=== PATIENT | female | born 1970 | race American Indian/Alaskan Native ===

== ENCOUNTER 2020-05-06 14:51 | Emergency (ER) | payer MEDICARE ==
--- NOTE | 2020-05-06 15:31 | Event Note ---
ED Screening Note Date of service: 05/06/20 Time: 15:25 ED Screening Note: 49 y/o female comes in for abd pain, N/V/D. History SCD, Cancer and IBS. History of cholecystectomy This initial assessment/diagnostic orders/clinical plan/treatment(s) is/are subject to change based on patients health status, clinical progression and re- assessment by fellow clinical providers in the ED. Further treatment and workup at subsequent clinical providers discretion. Patient/guardian urged not to elope from the ED as their condition may be serious if not clinically assessed and managed. Initial orders include:
[2020-05-06 15:49] LABS: Basophils # (Auto) 0.1 K/mm3 (0.0-0.1); Basophils % (Auto) 1.6 % (0.0-1.8); Eosinophils % (Auto) 0.1 % (0.0-4.3); Hematocrit 35.7 % (30.3-42.9); Hemoglobin 12.3 gm/dl (10.1-14.3); Lymphocytes # (Auto) 1.3 K/mm3 (1.2-5.4); Lymphocytes % (Auto) 27.6 % (13.4-35.0); Mean Corpuscular HGB Conc 34 % (30-34); Mean Corpuscular Volume 99 fl (79-97); Monocytes # (Auto) 0.3 K/mm3 (0.0-0.8); Monocytes % (Auto) 6.6 % (0.0-7.3); Platelet Count 375 K/mm3 (140-440); Red Blood Count 3.61 M/mm3 (3.65-5.03); Red Cell Distribution Width 13.3 % (13.2-15.2)
[2020-05-06 16:03] LABS: Alanine Aminotransferase 9 units/L (7-56); Albumin 4.5 g/dL (3.9-5); BUN/Creatinine Ratio 24; Blood Urea Nitrogen 17 mg/dL (7-17); Calcium 9.7 mg/dL (8.4-10.2); Hemolysis Index 11
--- NOTE | 2020-05-06 16:18 | Emergency Department Report ---
ED Abdominal Pain HPI - General Chief Complaint: Nausea/Vomiting/Diarrhea Stated Complaint: STOMACH PAIN, DIRRHEA Time Seen by Provider: 05/06/20 16:05 Source: patient Mode of arrival: Ambulatory Limitations: No Limitations - History of Present Illness Initial Comments: 49-year-old Pakistani female with past medical history of leukemia, hypertension with emerge department complaining of a 1 day history of diffuse abdominal pain which radiates to the lower abdomen associated with with diarrhea. She became concerned when she had an episode of vomiting today reports no hematemesis no hematochezia no no hematuria reports no chest pain or palpitations no fevers chills or sweats. MD Complaint: abdominal pain Quality: aching, dull Consistency: constant Improves With: nothing Worsens With: nothing Associated Symptoms: nausea, vomiting, diarrhea. denies: constipation, dysuria, hematemesis - Related Data Home Medications Medication Instructions Recorded Confirmed Last Taken lisinopriL [Zestril TAB] 11/25/13 11/25/13 Unknown Previous Rx's Medication Instructions Recorded Last Taken Type HYDROcodone/APAP 5-325 [[place] 1 each PO Q6HR PRN #12 tablet 11/25/13 Unknown Rx 5/325 mg] Penicillin Vk [Veetids TAB] 500 mg PO QID #40 tablet 11/25/13 Unknown Rx Ondansetron [Zofran Odt] 4 mg PO Q6H #20 tab.rapdis 02/28/15 Unknown Rx Ciprofloxacin HCl [Ciprofloxacin 500 mg PO Q12HR #20 tab 05/06/20 Unknown Rx TAB] Hyoscyamine Subl [Levsin Sl] 0.125 mg SL Q4HR PRN #16 tablet 05/06/20 Unknown Rx Ondansetron [Zofran ODT TAB] 8 mg PO Q12HR #14 tab.rapdis 05/06/20 Unknown Rx metroNIDAZOLE [Flagyl] 500 mg PO Q12HR #20 tab 05/06/20 Unknown Rx Allergies Allergy/AdvReac Type Severity Reaction Status Date / Time ibuprofen [From Motrin] Allergy Vomiting Verified 11/25/13 18:41 tramadol HCl [From Ultram] Allergy Vomiting Verified 11/25/13 18:41 ED Review of Systems ROS: Stated complaint: STOMACH PAIN, DIRRHEA Other details as noted in HPI Comment: All other systems reviewed and negative ED Past Medical Hx - Past Medical History Previous Medical History?: Yes Hx Hypertension: Yes Additional medical history: bowel obstruction - Surgical History Past Surgical History?: Yes Additional Surgical History: hysterectomy - Social History Smoking Status: Unknown if ever smoked Substance Use Type: None - Medications Home Medications: Home Medications Medication Instructions Recorded Confirmed Last Taken Type HYDROcodone/APAP 5-325 [[place] 1 each PO Q6HR PRN #12 tablet 11/25/13 Unknown Rx 5/325 mg] Penicillin Vk [Veetids TAB] 500 mg PO QID #40 tablet 11/25/13 Unknown Rx lisinopriL [Zestril TAB] 11/25/13 11/25/13 Unknown History Ondansetron [Zofran Odt] 4 mg PO Q6H #20 tab.rapdis 02/28/15 Unknown Rx Ciprofloxacin HCl [Ciprofloxacin 500 mg PO Q12HR #20 tab 05/06/20 Unknown Rx TAB] Hyoscyamine Subl [Levsin Sl] 0.125 mg SL Q4HR PRN #16 tablet 05/06/20 Unknown Rx Ondansetron [Zofran ODT TAB] 8 mg PO Q12HR #14 tab.rapdis 05/06/20 Unknown Rx metroNIDAZOLE [Flagyl] 500 mg PO Q12HR #20 tab 05/06/20 Unknown Rx ED Physical Exam - General Limitations: No Limitations General appearance: alert, in no apparent distress - Head Head exam: Present: atraumatic, normocephalic - Eye Eye exam: Present: normal appearance, PERRL, EOMI Pupils: Present: normal accommodation - ENT ENT exam: Present: mucous membranes moist - Neck Neck exam: Present: normal inspection - Respiratory Respiratory exam: Present: normal lung sounds bilaterally. Absent: respiratory distress - Cardiovascular Cardiovascular Exam: Present: regular rate, normal rhythm. Absent: systolic murmur, diastolic murmur, rubs, gallop - GI/Abdominal GI/Abdominal exam: Present: soft, tenderness, normal bowel sounds, other (No Ro vsing, no Dent Justice, no Justice sign, no Weinstein's, no tenderness at McBurney's). Absent: guarding, rebound, hyperactive bowel sounds, hypoactive bowel sounds, organomegaly - Extremities Exam Extremities exam: Present: normal inspection - Back Exam Back exam: Present: normal inspection - Neurological Exam Neurological exam: Present: alert, oriented X3, CN II-XII intact, normal gait - Psychiatric Psychiatric exam: Present: normal affect, normal mood - Skin Skin exam: Present: warm, dry, intact, normal color. Absent: rash ED Course Vital Signs 05/06/20 15:13 Temperature 99 F Pulse Rate 71 Respiratory 16 Rate Blood Pressure 123/88 [Left] O2 Sat by Pulse 96 Oximetry ED Medical Decision Making - Lab Data Result diagrams: 05/06/20 15:33 05/06/20 15:33 Lab Results 05/06/20 05/06/20 Range/Units 15:33 15:33 WBC 4.6 (4.5-11.0) K/mm3 RBC 3.61 L (3.65-5.03) M/mm3 Hgb 12.3 (10.1-14.3) gm/dl Hct 35.7 (30.3-42.9) % MCV 99 H (79-97) fl MCH 34 H (28-32) pg MCHC 34 (30-34) % RDW 13.3 (13.2-15.2) % Plt Count 375 (140-440) K/mm3 Lymph % (Auto) 27.6 (13.4-35.0) % [place] % (Auto) 6.6 (0.0-7.3) % Eos % (Auto) 0.1 (0.0-4.3) % Baso % (Auto) 1.6 (0.0-1.8) % Lymph # 1.3 (1.2-5.4) K/mm3 [place] # 0.3 (0.0-0.8) K/mm3 Eos # 0.0 (0.0-0.4) K/mm3 Baso # 0.1 (0.0-0.1) K/mm3 Seg Neutrophils % 64.1 (40.0-70.0) % Seg Neutrophils # 2.9 (1.8-7.7) K/mm3 Sodium 140 (137-145) mmol/L Potassium 4.1 (3.6-5.0) mmol/L Chloride 101.5 (98-107) mmol/L Carbon Dioxide 25 (22-30) mmol/L Anion Gap 18 mmol/L BUN 17 (7-17) mg/dL Creatinine 0.7 (0.7-1.2) mg/dL Estimated GFR > 60 ml/min BUN/Creatinine Ratio 24 % Glucose 103 H (65-100) mg/dL Calcium 9.7 (8.4-10.2) mg/dL Total Bilirubin 1.10 (0.1-1.2) mg/dL AST 16 (5-40) units/L ALT 9 (7-56) units/L Alkaline Phosphatase 52 (35-129) units/L Total Protein 6.8 (6.3-8.2) g/dL Albumin 4.5 (3.9-5) g/dL Albumin/Globulin Ratio 2.0 % Lipase 26 (13-60) units/L - Radiology Data Radiology results: report reviewed Print Report Referring Physician:CHET JOINERPatient Name:SERA SERRATOPatient ID:[id number] of :[id number]:FemaleAccession:[id number] Date:[id number] Status:Finalized Findings [facility] [address] [place] [address] Cat Scan Report Signed Patient: SERA SERRATO MR#: [id number] : 1970 Acct:[id number] Age/Sex: 49 / F ADM Date: 05/06/20 Loc: ED Attending Dr: Ordering Physician: GISEL LANDIS Date of Service: 05/06/20 Procedure(s): CT abdomen pelvis wo con Accession Number(s): [id number] cc: GISEL LANDIS CT ABDOMEN AND PELVIS WITHOUT CONTRAST INDICATION / CLINICAL INFORMATION: Nausea and vomiting. TECHNIQUE: Axial CT images were obtained through the abdomen and pelvis without IV contrast. All CT scans at this location are performed using CT dose reduction for ALARA by means of automated exposure control. COMPARISON: None available. FINDINGS: Lack of intra-abdominal and subcutaneous fat and noncontrast technique limits evaluation of internal structures. LOWER CHEST: No significant abnormality. LIVER: No significant abnormality. GALLBLADDER: Surgically absent. BILE DUCTS: No significant abnormality. PANCREAS: No significant abnormality. SPLEEN: No significant abnormality. ADRENALS: No significant abnormality. RIGHT KIDNEY / URETER: 3.6 cm simple cyst. No significant abnormality. LEFT KIDNEY / URETER: No significant abnormality. STOMACH / SMALL BOWEL: No significant abnormality. COLON: No significant abnormality. APPENDIX: Not well visualized. PERITONEUM: No free fluid. No free air. No fluid collection. LYMPH NODES: No significant adenopathy. AORTA / ARTERIES: No significant abnormality. IVC / VEINS: No significant abnormality. URINARY BLADDER: No significant abnormality. REPRODUCTIVE ORGANS: Uterus is absent. No significant adnexal abnormality. ADDITIONAL FINDINGS: None. SKELETAL SYSTEM: No significant abnormality. IMPRESSION: 1. No inflammatory process or bowel obstruction. Signer Name: Parveen Saldana MD Signed: 05/06/2020 5:27 PM Workstation Name: [id number] Transcribed By: DT Dictated By: Aquilino Saldana MD Electronically Authenticated By: Aquilino Saldana MD Signed Date/Time: 05/06/201726 DD/ 21 TD/TT: - Medical Decision Making This patient presents with abdominal pain of unclear etiology. A CT scan was performed to evaluate for potential causes of the abdominal pain, however, neither the clinical exam nor the CT has identified an emergent etiology for the abdominal pain. Specifically, given the benign exam, the laboratory studies, and unremarkable CT, I have a very low suspicion for appendicitis, ischemic bowel, bowel perforation, or any other life threatening disease. I have discussed with the patient the level of uncertainty with undifferentiated abdominal pain and clearly explained the need to follow-up as noted on the discharge instructions, or return to the Emergency Department immediately if the pain worsens, develops fever, persistent and uncontrollable vomiting, or for any new symptoms or concerns. Critical care attestation.: If time is entered above; I have spent that time in minutes in the direct care of this critically ill patient, excluding procedure time. ED Disposition Clinical Impression: Abdominal pain, Gastroenteritis Disposition: - TO HOME OR SELFCARE Is pt being admited?: No Does the pt Need Aspirin: No Condition: Stable Instructions: Acute Nausea and Vomiting (ED), Gastroenteritis (ED), Infectious Colitis (ED) Prescriptions: Ciprofloxacin HCl [Ciprofloxacin TAB] 500 mg PO Q12HR #20 tab metroNIDAZOLE [Flagyl] 500 mg PO Q12HR #20 tab Hyoscyamine Subl [Levsin Sl] 0.125 mg SL Q4HR PRN #16 tablet PRN Reason: Spasms Ondansetron [Zofran ODT TAB] 8 mg PO Q12HR #14 tab.rapdis Referrals: PRIMARY CAREMD [Primary Care Provider] - 3-5 Days [facility] [Provider Group] - 3-5 Days
[2020-05-06] MEDS ORDERED: IBUPROFEN 600 MG TAB PO ONE (17:17)
--- NOTE | 2020-05-06 17:32 | Cat Scan Report ---
CT ABDOMEN AND PELVIS WITHOUT CONTRAST INDICATION / CLINICAL INFORMATION: Nausea and vomiting. TECHNIQUE: Axial CT images were obtained through the abdomen and pelvis without IV contrast. All CT scans at [facility] location are performed using CT dose reduction for ALARA by means of automated exposure control. COMPARISON: None available. FINDINGS: Lack of intra-abdominal and subcutaneous fat and noncontrast technique limits evaluation of internal structures. LOWER CHEST: No significant abnormality. LIVER: No significant abnormality. GALLBLADDER: Surgically absent. BILE DUCTS: No significant abnormality. PANCREAS: No significant abnormality. SPLEEN: No significant abnormality. ADRENALS: No significant abnormality. RIGHT KIDNEY / URETER: 3.6 cm simple cyst. No significant abnormality. LEFT KIDNEY / URETER: No significant abnormality. STOMACH / SMALL BOWEL: No significant abnormality. COLON: No significant abnormality. APPENDIX: Not well visualized. PERITONEUM: No free fluid. No free air. No fluid collection. LYMPH NODES: No significant adenopathy. AORTA / ARTERIES: No significant abnormality. IVC / VEINS: No significant abnormality. URINARY BLADDER: No significant abnormality. REPRODUCTIVE ORGANS: Uterus is absent. No significant adnexal abnormality. ADDITIONAL FINDINGS: None. SKELETAL SYSTEM: No significant abnormality. IMPRESSION: 1. No inflammatory process or bowel obstruction. Signer Name: Parveen Saldana MD Signed: 05/06/2020 5:27 PM Workstation Name: [id number]
[2020-05-06] MEDS ORDERED: HYOSCYAMINE SUBL 0.125 MG TAB SL ONE (18:51)
[2020-05-06 19:00] VITALS: BP 118/84
== END 2020-05-06 18:59 | disposition home or self-care (01) ==
LOC: ED 14:51
DX: K52.9 Noninfective gastroenteritis and colitis, unspecified (principal); I10 Essential (primary) hypertension; Z79.899 Other long term (current) drug therapy; Z90.710 Acquired absence of both cervix and uterus; Z88.8 Allergy status to other drugs, medicaments and biological substances
CPT/HCPCS: 36415; 74176; 80053; 83690; 85025

== ENCOUNTER 2020-12-05 06:22 | Emergency (ER) | payer MEDICARE ==
[2020-12-05 06:30] VITALS: BP 139/92
[2020-12-05 07:38] LABS: Basophils # (Auto) 0.1 K/mm3 (0.0-0.1); Basophils % (Auto) 1.4 % (0.0-1.8); Eosinophils % (Auto) 0.3 % (0.0-4.3); Hemoglobin 11.8 gm/dl (10.1-14.3); Lymphocytes # (Auto) 1.3 K/mm3 (1.2-5.4); Lymphocytes % (Auto) 29.7 % (13.4-35.0); Mean Corpuscular HGB Conc 34 % (30-34); Mean Corpuscular Volume 98 fl (79-97); Monocytes # (Auto) 0.4 K/mm3 (0.0-0.8); Monocytes % (Auto) 9.2 % (0.0-7.3); Platelet Count 344 K/mm3 (140-440); Red Blood Count 3.57 M/mm3 (3.65-5.03); Red Cell Distribution Width 14.2 % (13.2-15.2)
[2020-12-05 08:00] LABS: Alanine Aminotransferase 6 units/L (7-56); Albumin 4.1 g/dL (3.9-5); Blood Urea Nitrogen 7 mg/dL (7-17); Calcium 9.3 mg/dL (8.4-10.2); Hemolysis Index 3
[2020-12-05 08:03] LABS: BUN/Creatinine Ratio 12
[2020-12-05] MEDS ORDERED: POTASSIUM CHLORIDE ER 20 MEQ TAB PO ONE (08:08)
[2020-12-05] MEDS ORDERED: ONDANSETRON 4 MG/2 ML INJ IV ONE (08:39)
[2020-12-05] MEDS ORDERED: MORPHINE 4 MG/1 ML INJ IV ONE (08:39)
[2020-12-05] MEDS ORDERED: SODIUM CHLORIDE 0.9% 1000 ML 1,000 ML IV ONE (08:39)
--- NOTE | 2020-12-05 08:44 | Emergency Department Report ---
HPI - General Chief Complaint: Nausea/Vomiting/Diarrhea Time Seen by Provider: 12/05/20 06:45 - HPI HPI: This is a 50-year-old -[place] female who presents to the emergency department with complaint of a 4 to 5-day history of lower abdominal pain and diarrhea. The patient denies any fever, nausea, vomiting, dysuria, vaginal bleeding or discharge. She has a past medical history of previous bowel obstruction with some type of surgical intervention. She has a history of a cholecystectomy and hysterectomy. Patient also has a history of leukemia for which she says she is currently undergoing intermittent treatment. She follows with a Dr Santana for oncology. The patient says that she has not had any medication for treatment at home prior to presentation. However the [facility] [employer] [facility] prescription monitoring system shows that the patient filled 120 pills of Percocet 10/325 on 11/24/2020 that was prescribed by Dr. Varun Duckworth. ED Past Medical Hx - Past Medical History Previous Medical History?: Yes Hx Hypertension: No Hx of Cancer: Yes (leukemia) Additional medical history: bowel obstruction - Surgical History Past Surgical History?: Yes Hx Cholecystectomy: Yes Additional Surgical History: hysterectomy. bowel obstruction - Social History Smoking Status: Never Smoker Substance Use Type: None - Medications Home Medications: Home Medications Medication Instructions Recorded Confirmed Last Taken Type HYDROcodone/APAP 5-325 [[place] 1 each PO Q6HR PRN #12 tablet 11/25/13 Unknown Rx 5/325 mg] Penicillin Vk [Veetids TAB] 500 mg PO QID #40 tablet 11/25/13 Unknown Rx lisinopriL [Zestril TAB] 11/25/13 11/25/13 Unknown History Ondansetron [Zofran Odt] 4 mg PO Q6H #20 tab.rapdis 02/28/15 Unknown Rx Ciprofloxacin HCl [Ciprofloxacin 500 mg PO Q12HR #20 tab 05/06/20 Unknown Rx TAB] Hyoscyamine Subl [Levsin Sl] 0.125 mg SL Q4HR PRN #16 tablet 05/06/20 Unknown Rx Ondansetron [Zofran ODT TAB] 8 mg PO Q12HR #14 tab.rapdis 05/06/20 Unknown Rx metroNIDAZOLE [Flagyl] 500 mg PO Q12HR #20 tab 05/06/20 Unknown Rx ED Review of Systems ROS: Stated complaint: ABD PAIN Other details as noted in HPI Comment: All other systems reviewed and negative Constitutional: denies: chills, fever Eyes: denies: eye pain, vision change ENT: denies: ear pain, throat pain Respiratory: denies: cough, shortness of breath Cardiovascular: denies: chest pain, palpitations Gastrointestinal: abdominal pain, diarrhea. denies: nausea, vomiting Genitourinary: denies: dysuria, discharge Musculoskeletal: denies: back pain, arthralgia Skin: denies: rash, lesions Neurological: denies: headache, weakness Physical Exam - Physical Exam Vital Signs: Vital Signs 12/05/20 06:27 Temperature 98.4 F Pulse Rate 99 H Respiratory 17 Rate Blood Pressure 139/92 O2 Sat by Pulse 100 Oximetry Physical Exam: GENERAL: The patient is well-developed well-nourished. HENT: Normocephalic. Atraumatic. Patient has moist mucous membranes. EYES: Extraocular motions are intact. NECK: Supple. Trachea is midline. CHEST/LUNGS: Clear to auscultation. There is no respiratory distress noted. HEART/CARDIOVASCULAR: Regular. There is no tachycardia. There is no murmur. ABDOMEN: Abdomen is soft. Mild lower abdominal tenderness to palpation. No guarding. No rebound tenderness. Patient has normal bowel sounds. There is no abdominal distention. SKIN: Skin is warm and dry. NEURO: The patient is awake, alert, and oriented. The patient is cooperative. The patient has no focal neurologic deficits. Normal speech. MUSCULOSKELETAL: There is no tenderness or deformity. There is no limitation range of motion. There is no evidence of acute injury ED Course Vital Signs 12/05/20 06:27 Temperature 98.4 F Pulse Rate 99 H Respiratory 17 Rate Blood Pressure 139/92 O2 Sat by Pulse 100 Oximetry ED Medical Decision Making - Lab Data Result diagrams: 12/05/20 07:09 12/05/20 07:09 Lab Results 12/05/20 12/05/20 12/05/20 Range/Units 07:09 07:09 07:09 WBC 4.5 (4.5-11.0) K/mm3 RBC 3.57 L (3.65-5.03) M/mm3 Hgb 11.8 (10.1-14.3) gm/dl Hct 35.0 (30.3-42.9) % MCV 98 H (79-97) fl MCH 33 H (28-32) pg MCHC 34 (30-34) % RDW 14.2 (13.2-15.2) % Plt Count 344 (140-440) K/mm3 Lymph % (Auto) 29.7 (13.4-35.0) % [place] % (Auto) 9.2 H (0.0-7.3) % Eos % (Auto) 0.3 (0.0-4.3) % Baso % (Auto) 1.4 (0.0-1.8) % Lymph # (Auto) 1.3 (1.2-5.4) K/mm3 [place] # (Auto) 0.4 (0.0-0.8) K/mm3 Eos # (Auto) 0.0 (0.0-0.4) K/mm3 Baso # (Auto) 0.1 (0.0-0.1) K/mm3 Seg Neutrophils % 59.4 (40.0-70.0) % Seg Neutrophils # 2.7 (1.8-7.7) K/mm3 Sodium 144 (137-145) mmol/L Potassium 3.3 L (3.6-5.0) mmol/L Chloride 108.7 H (98-107) mmol/L Carbon Dioxide 27 (22-30) mmol/L Anion Gap 12 mmol/L BUN 7 (7-17) mg/dL Creatinine 0.6 (0.6-1.2) mg/dL Estimated GFR > 60 ml/min BUN/Creatinine Ratio 12 % Glucose 98 (65-100) mg/dL Calcium 9.3 (8.4-10.2) mg/dL Total Bilirubin 0.70 (0.1-1.2) mg/dL AST 13 (5-40) units/L ALT 6 L (7-56) units/L Alkaline Phosphatase 64 (35-129) units/L Total Protein 7.1 (6.3-8.2) g/dL Albumin 4.1 (3.9-5) g/dL Albumin/Globulin Ratio 1.4 % Lipase 103 H (13-60) units/L Urine Color (Yellow) Urine Turbidity (Clear) Urine pH (5.0-7.0) Ur Specific [place] (1.003-1.030) Urine Protein (Negative) mg/dL Urine Glucose (UA) (Negative) mg/dL Urine Ketones (Negative) mg/dL Urine Blood (Negative) Urine Nitrite (Negative) Urine Bilirubin (Negative) Urine Urobilinogen (<2.0) mg/dL Ur Leukocyte Esterase (Negative) Urine WBC (Auto) (0.0-6.0) /HPF Urine RBC (Auto) (0.0-6.0) /HPF U Epithel Cells (Auto) (0-13.0) /HPF Urine Bacteria (Auto) (Negative) /HPF Urine Mucus /HPF Urine Yeast (Budding) /HPF 12/05/20 Range/Units Unknown WBC (4.5-11.0) K/mm3 RBC (3.65-5.03) M/mm3 Hgb (10.1-14.3) gm/dl Hct (30.3-42.9) % MCV (79-97) fl MCH (28-32) pg MCHC (30-34) % RDW (13.2-15.2) % Plt Count (140-440) K/mm3 Lymph % (Auto) (13.4-35.0) % [place] % (Auto) (0.0-7.3) % Eos % (Auto) (0.0-4.3) % Baso % (Auto) (0.0-1.8) % Lymph # (Auto) (1.2-5.4) K/mm3 [place] # (Auto) (0.0-0.8) K/mm3 Eos # (Auto) (0.0-0.4) K/mm3 Baso # (Auto) (0.0-0.1) K/mm3 Seg Neutrophils % (40.0-70.0) % Seg Neutrophils # (1.8-7.7) K/mm3 Sodium (137-145) mmol/L Potassium (3.6-5.0) mmol/L Chloride (98-107) mmol/L Carbon Dioxide (22-30) mmol/L Anion Gap mmol/L BUN (7-17) mg/dL Creatinine (0.6-1.2) mg/dL Estimated GFR ml/min BUN/Creatinine Ratio % Glucose (65-100) mg/dL Calcium (8.4-10.2) mg/dL Total Bilirubin (0.1-1.2) mg/dL AST (5-40) units/L ALT (7-56) units/L Alkaline Phosphatase (35-129) units/L Total Protein (6.3-8.2) g/dL Albumin (3.9-5) g/dL Albumin/Globulin Ratio % Lipase (13-60) units/L Urine Color Yellow (Yellow) Urine Turbidity Slightly-cloudy (Clear) Urine pH 7.0 (5.0-7.0) Ur Specific [place] 1.009 (1.003-1.030) Urine Protein <15 mg/dl (Negative) mg/dL Urine Glucose (UA) Neg (Negative) mg/dL Urine Ketones Tr (Negative) mg/dL Urine Blood Sm (Negative) Urine Nitrite Neg (Negative) Urine Bilirubin Neg (Negative) Urine Urobilinogen < 2.0 (<2.0) mg/dL Ur Leukocyte Esterase Neg (Negative) Urine WBC (Auto) 1.0 (0.0-6.0) /HPF Urine RBC (Auto) 5.0 (0.0-6.0) /HPF U Epithel Cells (Auto) 1.0 (0-13.0) /HPF Urine Bacteria (Auto) 1+ (Negative) /HPF Urine Mucus Few /HPF Urine Yeast (Budding) 1+ /HPF - Radiology Data Radiology results: image reviewed interpreted by me: Abdominal x-ray shows nonspecific nonobstructive bowel gas. - Medical Decision Making This patient presents to the emergency department with a 5-day history of lower abdominal pain and some diarrhea. On examination the patient has normal bowel sounds. The abdomen is soft, nondistended and nontoxic in appearance. There is some mild reproducible lower abdominal tenderness to palpation, but no guarding or rebound tenderness. Abdominal x-ray shows nonspecific nonobstructive bowel gas. The patient's labs have been mostly unremarkable other than some mild hypokalemia and a mild elevation in the lipase level. Vital signs reassuring throughout her ED course including being afebrile. Patient was given a dose of IV analgesia with some IV fluid resuscitation and upon reevaluation says she is feeling greatly improved. Patient follows with a pain management physician and should have appropriate pain medication at home. She has been given outpatient referral for primary care and for gastroenterology. The patient was able to pass an oral challenge. She will return to the emergency department with any worsening of her symptoms or with any acute distress. Critical Care Time: No Critical care attestation.: If time is entered above; I have spent that time in minutes in the direct care of this critically ill patient, excluding procedure time. ED Disposition Clinical Impression: Hypokalemia Abdominal pain Qualifiers: Abdominal location: unspecified location Qualified Code(s): R10.9 - Unspecified abdominal pain Disposition: TO HOME OR SELFCARE Is pt being admited?: No Condition: Stable Instructions: Abdominal Pain, Adult, Hypokalemia Additional Instructions: I am giving you a referral for some local primary care physicians in the area. Please follow-up with a primary care physician in the next few days. I have also given you a referral for [facility] to follow-up regarding your abdominal pains. Return to the emergency department with any worsening of your symptoms, new or concerning symptoms not addressed during this current emergency department visit, or with any acute distress. Referrals: ALMITA GARZA MD [Primary Care Provider] - 3-5 Days PAO DOSS MD [Staff Physician] - 3-5 Days [facility] [Provider Group] - 3-5 Days [facility] [Provider Group] - 3-5 Days Time of Disposition: 10:21
[2020-12-05 09:25] LABS: Bacteria,Urine 1+ /HPF (Negative); Bilirubin,Urine NEG (Negative); Blood,Urine SM (Negative); Color,Urine Yellow (Yellow); Mucus,Urine FEW /HPF; Protein,Urine <15 mg/dL mg/dL (Negative); Urobilinogen,Urine < 2.0 mg/dL (<2.0)
--- NOTE | 2020-12-05 09:38 | XRay Report ---
ABDOMEN 2 VIEWS INDICATION / CLINICAL INFORMATION: Abd pain. COMPARISON: None available. FINDINGS: TUBES / LINES: None. BOWEL GAS PATTERN: No significant abnormality. FREE AIR / EXTRALUMINAL GAS: None seen. ADDITIONAL FINDINGS: Postsurgical clips are noted over the mid abdomen. CHEST: Visualized chest shows no significant abnormality. IMPRESSION: 1. No significant abnormality. Signer Name: Billy Cyr MD Signed: 12/05/2020 9:33 AM Workstation Name: [id number]
== END 2020-12-05 10:31 | disposition home or self-care (01) ==
LOC: ED 06:22
DX: E87.6 Hypokalemia (principal); R10.30 Lower abdominal pain, unspecified; Z90.49 Acquired absence of other specified parts of digestive tract; Z90.710 Acquired absence of both cervix and uterus; Z79.899 Other long term (current) drug therapy; Z88.8 Allergy status to other drugs, medicaments and biological substances
CPT/HCPCS: 36415; 74019; 80053; 81001; 83690; 85025; 96361; 96374; 96375; 99284; J2270; J2405; J7030